=== PATIENT | female | born 1985 | race Hispanic/Latino ===

== ENCOUNTER 2020-07-19 06:24 | Day surgery (SDC) | payer BC ==
[2020-07-14 15:32] LABS: BASOPHILS % (AUTO) 0.5 % (0.0-5.0); EOSINOPHILS % (AUTO) 0.6 % (0.0-8.0); HEMATOCRIT 42.5 % (36-48); LYMPHOCYTES % (AUTO) 34.8 % (21.0-51.0); MEAN CORPUSCULAR HEMOGLOBIN 30.5 pg (27.0-33.0); MEAN CORPUSCULAR HGB CONC 33.2 g/dL (32.0-36.0); MONOCYTES % (AUTO) 5.8 % (3.0-13.0); NEUTROPHILS % (AUTO) 58.1 % (40.0-77.0); PLATELET COUNT (AUTO) 216 K/uL (130-400); RED BLOOD CELL COUNT(AUTO) 4.62 MIL/uL (4.00-5.50); RED CELL DISTRIBUTION WIDTH 12.1 % (11.0-15.5); WHITE BLOOD COUNT (AUTO) 6.5 K/uL (4.8-10.8)
[2020-07-14 15:43] LABS: INR 1.07 (0.85-1.15); PROTHROMBIN TIME 11.4 SEC (9.6-11.6)
[2020-07-14 15:44] LABS: PARTIAL THROMBOPLASTIN TIME 26.1 SEC (26.3-35.5)
[2020-07-14 15:46] VITALS: BP 125/63
[2020-07-14 15:47] LABS: CREATININE 0.6 mg/dL (0.5-1.5); POTASSIUM 3.5 mmol/L (3.5-5.1)
[2020-07-19] VITALS (18 sets, daily range): BP systolic 122–149; BP diastolic 69–82
[~2020-07-19] VITALS: Ht 160 cm; Wt 63.2 kg
[~2020-07-19 06:24] MED LIST: ACET-2247 PO; CEFAZOLIN SODIUM 1 GM VIAL IVP SCH; SODIUM CHLORIDE 0.9% 500ML 500 ML IV SCH
[2020-07-19] MEDS ORDERED: LACTATED RINGERS 1000ML 1,000 ML IV ONE (06:42)
[2020-07-19] MEDS ORDERED: BUPIVACAINE/PF 0.25% 30ML VIAL IJ ONE (07:08)
[2020-07-19] MEDS ORDERED: FENTANYL CITRATE PF 50 MCG/1 ML 2ML VIAL ONE ×2 (07:57→09:09)
[2020-07-19] MEDS ORDERED: ONDANSETRON HCL 4 MG/2 ML VIAL ONE (07:57)
[2020-07-19] MEDS ORDERED: DEXAMETHASONE SOD PHOSPHATE 10MG/ML 1ML VIAL ONE (07:57)
[2020-07-19] MEDS ORDERED: MIDAZOLAM HCL 1 MG/ML 2ML VIAL ONE (07:57)
[2020-07-19] MEDS ORDERED: SUCCINYLCHOLINE 200MG/10ML SYR ONE (07:57)
[2020-07-19] MEDS ORDERED: PROPOFOL 10 MG/ML 20ML VIAL IV ONE (07:57)
[2020-07-19] MEDS ORDERED: LIDOCAINE PF 2% 5ML ABBOJECT ONE (07:57)
[2020-07-19] MEDS ORDERED: ROCURONIUM 10MG/1ML SYR 10 MG/ML ML ONE (07:58)
[2020-07-19] MEDS ORDERED: NEOSTIGMINE 5MG/5ML SYR IV ONE (09:33)
[2020-07-19] MEDS ORDERED: GLYCOPYRROLATE 1 MG/5 ML SYRINGE ONE (09:33)
[2020-07-19] MEDS ORDERED: MEPERIDINE-PF 25 MG/ML SYG ONE ×2 (10:04→10:18)
[2020-07-19] MEDS ORDERED: METOCLOPRAMIDE 10 MG/2 ML VIAL ONE (10:52)
== END 2020-07-19 12:10 ==
LOC: DAH 06:24
PROVIDERS: ATTEND Surgery
DX: K80.12 Calculus of gallbladder with acute and chronic cholecystitis without obstruction (principal); Z20.828 Contact with and (suspected) exposure to other viral communicable diseases; Z79.01 Long term (current) use of anticoagulants; Z79.899 Other long term (current) drug therapy
CPT/HCPCS: 47562; S2900; 36415; 80048; 84703; 85025; 85610; 85730; J0330; J0690; J1100; J2001; J2175; J2250; J2405; J2704; J2710; J2765; J3010; J3490; J7030; J7120; U0003